=== PATIENT | female | born 1955 | race Caucasian/White ===

== ENCOUNTER → 2021-02-26 15:30 | Outpatient (CLI) | payer OTHER, SELFPAY ==
--- NOTE | 2021-02-26 09:31 | COLBX_PTH ---
PATIENT: WILMER FITZPATRICK LOC: [facility] U#:[id number] AGE/SX: 69/F ROOM: RE02/26/[address]: Dr. Jose Paredes MD : 1955 BED: DIS: SPEC #: [id number] RECD: 02/26/21 15:04 STATUS: CHELSIE REKHA #: [id number] MARJAN: 02/26/21 09:[address]: Jose Paredes DEPT: SURGICAL PATHOLOGY RECD BY: Isabel Tapia ENTERED: 02/27/21 08:07 SP TYPE: COLON BX OTHR DR: Dr. Julien Sal III, MD Tissues: Descending colon Procedures: Surgery Specimen Level IV HEADER OPERATION: Colonoscopy PRE-OP DIAGNOSIS: Colon polyps TISSUE SUBMITTED: Descending colon polyp MICROSCOPIC DIAGNOSIS Descending colon polyp, biopsy: Tubular adenoma. A fragment of fecal material. SJ:fermin 03/02/2021 MICROSCOPIC DESCRIPTION Slides are reviewed. GROSS DESCRIPTION Received in fixative is one container labeled with the patient's name and designated descending colon polyp. The specimen consists of two irregular fragments of light beatty soft tissue that in aggregate measure 0.6 x 0.5 x 0.2 cm. The specimen is totally submitted in one cassette. / AM:fermin 02/27/21 TC:1 CPT: 92231
== END ==
PROVIDERS: PCP Family Medicine; Referring Provider Surgery; Visit Provider Surgery
DX: Z86.010 Personal history of colon polyps (principal)
CPT/HCPCS: 88305

== ENCOUNTER → 2023-12-07 | Outpatient (CLI) | payer MEDICARE, SELFPAY ==
[2023-12-07] MEDS: Lidocaine 2% (5ml sdv) 5 ML VIAL.MPF (13:50)
[2023-12-07] MEDS: Lidocaine 1% (5 ml sdv) 5 ML Vial 4 ML OPERA.SITE (13:55)
[2023-12-07] MEDS: Betamethasone/Betamethasone 30 MG/5 ML Vial 12 MG INTRAARTIC (13:55)
--- NOTE | 2023-12-07 15:31 | PCM.OP.PRO ---
Procedure Report Date of Procedure: 12/07/23 Assessment & Plan Assessment/Plan (1) Osteoarthritis of left shoulder: QUALIFIERS: Osteoarthritis type: unspecified Qualified Code(s): M19.012 - Primary osteoarthritis, left shoulder PLAN: PROCEDURE: Fluoroscopic Guided left shoulder injection ORDERING PROVIDER: Dr. Reich INDICATION: Female, 68 years old. Osteoarthritis of left shoulder. PROVIDER: SHAKIRA Ortez PROCEDURE: CONSENT: The risks, benefits, and alternatives to the procedure were explained to the patient. The specific risks of bleeding, infection, and neurovascular injury were detailed and accepted. Witnessed informed consent was obtained. TECHNIQUE: The left shoulder access site was prepped and draped in sterile fashion. 2% Lidocaine was administered subcutaneously for local anesthesia. A 22-gauge spinal needle was positioned under radiographic fluoroscopic localization. Approximately 2 cc of Isovue 300 instilled for localization purposes. Medication was then injected. MEDICATIONS: 12 mg of Celestone and 4 ml of 1% lidocaine. The spinal needle was removed, and a dressing was applied. The patient tolerated the procedure well without any immediate complications. IMPRESSION: Successful fluoroscopic guided left shoulder injection. Procedures Radiology Radiology Xray Procedures: Inj Asp major Joint - Hip, Knee
== END | disposition home or self-care (01) ==
LOC: RAD 13:31
PROVIDERS: PCP Physician Assistant; Referring Provider Specialist; Visit Provider Specialist
DX: M19.012 Primary osteoarthritis, left shoulder (principal); M25.512 Pain in left shoulder
CPT/HCPCS: 20610; 77002; Q9967; J0702